=== PATIENT | female | born 1975 | race Caucasian/White ===

== ENCOUNTER 2018-01-18 17:47 | Emergency (ER) | payer OTHER ==
[~2018-01-18] VITALS: Ht 157.5 cm; Wt 70.7 kg
[2018-01-18] MEDS ORDERED: EPINEPHRINE 1 MG/ML, 1ML ONE (18:00)
[2018-01-18] MEDS ORDERED: FAMOTIDINE 20 MG TABLET ONE (18:01)
[2018-01-18] MEDS ORDERED: CITA10TA8 PO (18:13)
[2018-01-18] MEDS ORDERED: DIPHENHYDRAMINE 50 MG/ML, 1ML ONE (18:16)
[2018-01-18] MEDS ORDERED: FAMOTIDINE 20 MG TABLET PO ONE (18:30)
[2018-01-18] MEDS ORDERED: DIPHENHYDRAMINE 50 MG/ML, 1ML IM ONE (18:30)
[2018-01-18 19:41] VITALS: BP 131/83
== END 2018-01-18 19:44 | disposition home or self-care (01) ==
LOC: ED 19:15
DX: T63.441A Toxic effect of venom of bees, accidental (unintentional), initial encounter (principal); L23.89 Allergic contact dermatitis due to other agents; Y92.89 Other specified places as the place of occurrence of the external cause
CPT/HCPCS: 96372; 99283; J1200; J7512